=== PATIENT | male | born 1965 | race Caucasian/White ===

== ENCOUNTER 2021-08-26 12:30 | Observation (INO) ==
--- NOTE | 2021-08-26 12:54 | Emergency Department Note ---
History of Present Illness General Chief complaint: Neuro Symptoms/Deficit Stated complaint: NUMBNESS ON L SIDE Time Seen by Provider: 08/26/21 12:39 Source: patient History of Present Illness Provider complaint: Left-sided numbness Onset (ago): day(s) Location: head, face, upper extremity, lower extremity and left Pain Consistency: + intermittent Quality: + other (Tingling) Relieved By: + none Associated symptoms: no chest pain, no cough, no headaches, no nausea/vomiting, no shortness of breath or no weakness This is a 56-year-old male who presents with left-sided numbness. He states the symptoms started 2 days ago in the afternoon. He noticed that his entire left arm felt numb. He describes this as a tingling sensation. He states that it seemed to go away that evening and when he woke up yesterday he had no symptoms. He then started to drive to work and noticed that he had numbness again but it now involves his head, face, arm and leg on the left side. It has been persistent since it started yesterday. He called his regular physician who sent him here for evaluation. He does have a history of neck problems but states that he has no neck pain at this time. He denies any difficulty with his vi leonel, speech, mentation, gait, swallowing or strength. He has never had a stroke before. He denies any recent illness, fever, headache, cough or cold symptoms, chest pain, shortness of breath, abdominal pain, vomiting, diarrhea or urinary symptoms. Home Medications Medication Instructions Recorded Confirmed Type celecoxib 200 mg capsule (Celebrex) 200 mg PO DAILY #90 cap 01/11/21 08/26/21 Rx Allergies Allergy/AdvReac Type Severity Reaction Status Date / Time No Known Allergies Allergy Unknown Verified 08/26/21 15:10 Past Med/Surg History Medical History Broken humerus History of allergic urticaria Testicular pain Surgical History History of broken leg History of facial injury History of surgery on arm S/P LASIK surgery S/P wisdom tooth extraction Family History Father Myocardial infarction Dementia Hypertension Mother Hypertension Brother Diabetes Denies family history of Ovarian cancer Prostate cancer Breast cancer Colorectal cancer Social History Smoking Status: Never smoker Second Hand Exposure: No; Hx Alcohol Use: Yes Alcohol type: hard liquor Alcohol Intake Frequency: 4 or More x per/Week Hx Substance Use: No Preferred Language: Moz[place] Communication Ability: Effective Visual Impairment: No Limitations Hearing Ability: Normal 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 and A total of 10 systems reviewed and were otherwise negative Physical Exam Vital Signs Vital Signs - 24 hr 08/26/21 12:34 Temperature 36.6 C Temperature Source Temporal Artery Scan Pulse Rate 80 Respiratory Rate 16 Blood Pressure 167/95 H Blood Pressure Mean 119 Pulse Oximetry 99 Oxygen Delivery Method Room Air Sepsis Recent Fever Within 48 Hours No Sepsis New/Unexplained Change in Mental Status No Sepsis Action Taken by Nursing No Action Required Constitutional: Vital signs reviewed. Eyes: Pupils are equal round reactive to light. Conjunctiva are noninjected. ENT: Pharynx is clear without erythema or exudate. Mucous membranes are moist. Neck supple without meningeal signs. Respiratory: Clear to auscultation bilaterally. Breath sounds are equal bilaterally. Cardiovascular: Regular rate and rhythm. No rubs or gallops. GI: Soft, nondistended and nontender. Bowel sounds are present. Musculoskeletal: No peripheral edema. No lower extremity tenderness. Integumentary: No cyanosis. or jaundice. Neurologic: The patient is awake and alert. Cranial nerves II-XII are intact. Motor is 5 out of 5 all extremities. Sensation is intact to light touch all extremities. Normal speech. No pronator drift. No limb ataxia. Normal gait Psychiatric: Normal affect. Course Administered Medications Discontinued Medications Ioversol (Optiray 320 125ml) 120 ml IV ONCE ONE Stop: 08/26/21 14:32 Last Admin: 08/26/21 14:31 Dose: 120 ml Documented by: [id number] Medical Decision Making Differential Diagnosis TIA, CVA, intracranial mass, intracranial hemorrhage, metabolic derangement, demyelinating disease Medical Records Attestation: I reviewed the patient's medical records. I did perform a limited focused review of portions of the patient's old chart on the electronic medical record. The patient has had no recent pertinent visits to this hospital. He is followed by pain management for neck pain. Home Medications Current Medication List: was personally reviewed by me Laboratory Data Attestation: I reviewed the patient's lab results. Result diagrams: 08/26/21 13:02 08/26/21 13:02 Lab Results 08/26/21 08/26/21 08/26/21 Range/Units 13:02 13:02 13:02 WBC 6.66 (4.8-10.8) K/uL RBC 4.57 L (4.7-6.1) M/uL Hgb 15.4 (14.0-18.0) g/dL Hct 43.2 (42-52) % MCV 94.5 (80-100) fL MCH 33.7 (25-34) pg MCHC 35.6 (32-36) g/dL RDW Std Deviation 41.7 (36.4-46.3) fL RDW Coeff of Salma 12.1 (11.5-14.5) % Plt Count 172 (130-400) K/uL MPV 8.4 (7.4-10.4) fL Immature Gran % (Auto) 0.2 % Neut % (Auto) 70.1 % Lymph % (Auto) 21.8 % [place] % (Auto) 7.4 % Eos % (Auto) 0.3 % Baso % (Auto) 0.2 % Neut # (Auto) 4.68 (1.4-6.5) K/uL Lymph # (Auto) 1.45 (1.2-3.4) K/uL [place] # (Auto) 0.49 (0.11-0.59) K/uL Eos # (Auto) 0.02 (0-0.5) K/uL Baso # (Auto) 0.01 (0-0.2) K/uL Immature Gran # (Auto) 0.01 (0.00-0.02) K/uL PT 10.8 (9.0-12.0) Seconds INR 1.0 (0.9-1.1) APTT 28.9 (21.0-31.0) Seconds PTT Ratio 1.1 Sodium (136-145) mmol/L Potassium (3.5-5.1) mmol/L Chloride (98-107) mmol/L Carbon Dioxide (21-32) mmol/L Anion Gap (3-11) BUN (6-23) mg/dl Creatinine (0.6-1.4) mg/dl Est Cr Clr Drug Dosing ml/min Est GFR ( Amer) ml/min Est GFR (Non-Af Amer) ml/min BUN/Creatinine Ratio (10-20) Glucose (70-99(Fasting)) mg/dl Calcium (8.5-10.1) mg/dl Magnesium (1.7-2.4) mg/dl Total Bilirubin (0.2-1.0) mg/dl AST (13-39) U/L ALT (7-52) U/L Alkaline Phosphatase (34-104) U/L Troponin I (0-0.04) ng/ml Total Protein (6.0-8.3) gm/dl Albumin (3.4-5.0) gm/dl Globulin (2.5-4.0) gm/dl Albumin/Globulin Ratio (0.9-2) SARS-CoV-2, RNA, NAAT (NEGATIVE) Blood Type A Positive Antibody Screen NEGATIVE 08/26/21 08/26/21 Range/Units 13:02 13:11 WBC (4.8-10.8) K/uL RBC (4.7-6.1) M/uL Hgb (14.0-18.0) g/dL Hct (42-52) % MCV (80-100) fL MCH (25-34) pg MCHC (32-36) g/dL RDW Std Deviation (36.4-46.3) fL RDW Coeff of Salma (11.5-14.5) % Plt Count (130-400) K/uL MPV (7.4-10.4) fL Immature Gran % (Auto) % Neut % (Auto) % Lymph % (Auto) % [place] % (Auto) % Eos % (Auto) % Baso % (Auto) % Neut # (Auto) (1.4-6.5) K/uL Lymph # (Auto) (1.2-3.4) K/uL [place] # (Auto) (0.11-0.59) K/uL Eos # (Auto) (0-0.5) K/uL Baso # (Auto) (0-0.2) K/uL Immature Gran # (Auto) (0.00-0.02) K/uL PT (9.0-12.0) Seconds INR (0.9-1.1) APTT (21.0-31.0) Seconds PTT Ratio Sodium 137 (136-145) mmol/L Potassium 3.9 (3.5-5.1) mmol/L Chloride 101 (98-107) mmol/L Carbon Dioxide 26 (21-32) mmol/L Anion Gap 10 (3-11) BUN 14 (6-23) mg/dl Creatinine 0.88 (0.6-1.4) mg/dl Est Cr Clr Drug Dosing 112.0 ml/min Est GFR ( Amer) 111.3 ml/min Est GFR (Non-Af Amer) 96.0 ml/min BUN/Creatinine Ratio 15.9 (10-20) Glucose 143 H (70-99(Fasting)) mg/dl Calcium 10.0 (8.5-10.1) mg/dl Magnesium 2.1 (1.7-2.4) mg/dl Total Bilirubin 1.0 (0.2-1.0) mg/dl AST 23 (13-39) U/L ALT 28 (7-52) U/L Alkaline Phosphatase 42 (34-104) U/L Troponin I < 0.03 (0-0.04) ng/ml Total Protein 8.0 (6.0-8.3) gm/dl Albumin 5.0 (3.4-5.0) gm/dl Globulin 3.0 (2.5-4.0) gm/dl Albumin/Globulin Ratio 1.7 (0.9-2) SARS-CoV-2, RNA, NAAT NEGATIVE (NEGATIVE) Blood Type Antibody Screen Imaging Data Radiologist's Impression: Chest X-Ray 08/26/21 12:52 XR chest 1V portable CLINICAL HISTORY: Stroke Like Symptoms TECHNIQUE: Single frontal radiograph of the chest was obtained. Comparison: Comparison is made to chest 2 views 01/23/2012 FINDINGS: No lines and tubes are seen. The cardiomediastinal silhouette is normal. The lungs are clear. No evidence of pleural effusion or pneumothorax. IMPRESSION: No acute chest disease. ACT 112: Negative or not required by law. Electronically signed by: Remberto Carlisle M.D. 08/26/2021 1:[address] 08/26/21 12:52 CT angio neck with con, CT head/brain wo con, CT angio head w con CLINICAL HISTORY: Stroke Like Symptoms TECHNIQUE: Contiguous axial CT images of the head were acquired from the base of the skull to the vertex without intravenous contrast administration. CT angiography of the head and neck was performed following intravenous administrat ion of iodinated contrast. Coronal and sagittal MIPS were obtained from the axial data set and were submitted for review. Automated dose lowering techniques and/or adjustment according to patient size were utilized for this examination. All measurements were calculated based on NASCET criteria. Comparison: None available at the time of this dictation. FINDINGS: CT head: There is no acute intracranial hemorrhage or evidence of acute territorial infarction. No shift of the midline structures, mass effect, or extra-axial abnormalities are shown. Lungs and soft tissues are unremarkable. CTA Neck: A 3 vessel aortic arch is shown. There is no significant atherosc lerotic plaque in the aortic arch or the origins of the innominate, left common carotid, and left subclavian arteries. The common carotid, external carotid, cervical segments of the internal carotid arteries, and the cervical segments of the vertebral arteries are patent without hemodynamically significant stenosis. The left vertebral artery is dominant. CTA Head: The anterior and posterior cerebral circulations are patent. No hemodynamically significant stenosis, aneurysm, dissection, or arteriovenous malformation is shown. Atherosclerotic disease is noted. IMPRESSION: 1. No acute intracranial hemorrhage, evidence of acute territorial infarction, or other acute intracranial disease process. 2. No occlusion, hemodynamically significant stenosis, aneurysm, dissection, or arteriovenous malformation in the major intracranial arteries. 3. No occlusion, hemodynamically significant stenosis, or dissection in the major cervical arteries. Assessment of stenosis of the internal carotid arteries is based on NASCET criteria. ACT 112: Negative or not required by law. Electronically signed by: Remberto Carlisle M.D. 08/26/2021 2:51 PM Head CTA 08/26/21 12:52 CT angio neck with con, CT head/brain wo con, CT angio head w con CLINICAL HISTORY: Stroke Like Symptoms TECHNIQUE: Contiguous axial CT images of the head were acquired from the base of the skull to the vertex without intravenous contrast administration. CT angiography of the head and neck was performed following intravenous administration of iodinated contrast. Coronal and sagittal MIPS were obtained from the axial data set and were submitted for review. Automated dose lowering techniques and/or adjustment according to patient size were utilized for this examination. All measurements were calculated based on NASCET criteria. Comparison: None available at the time of this dictation. FINDINGS: CT head: There is no acute intracranial hemorrhage or evidence of acute territorial infarction. No shift of the midline structures, mass effect, or extra-axial abnormalities are shown. Lungs and soft tissues are unremarkable. CTA Neck: A 3 vessel aortic arch is shown. There is no significant atherosclerotic plaque in the aortic arch or the origins of the innominate, left common carotid, and left subclavian arteries. The common carotid, external carotid, cervical segments of the internal carotid arteries, and the cervical segments of the vertebral arteries are patent without hemodynamically significant stenosis. The left vertebral artery is dominant. CTA Head: The anterior and posterior cerebral circulations are patent. No hemodynamically significant stenosis, aneurysm, dissection, or arteriovenous m alformation is shown. Atherosclerotic disease is noted. IMPRESSION: 1. No acute intracranial hemorrhage, evidence of acute territorial infarction, or other acute intracranial disease process. 2. No occlusion, hemodynamically significant stenosis, aneurysm, dissection, or arteriovenous malformation in the major intracranial arteries. 3. No occlusion, hemodynamically significant stenosis, or dissection in the major cervical arteries. Assessment of stenosis of the internal carotid arteries is based on NASCET criteria. ACT 112: Negative or not required by law. Electronically signed by: Remberto Carlisle M.D. 08/26/2021 2:51 PM Neck CTA 08/26/21 12:52 CT angio neck with con, CT head/brain wo con, CT angio head w con CLINICAL HISTORY: Stroke Like Symptoms TECHNIQUE: Contiguous axial CT images of the head were acquired from the base of the skull to the vertex without intravenous contrast administration. CT angiography of the head and neck was performed following intravenous administration of iodinated contrast. Coronal and sagittal MIPS were obtained from the axial data set and were submitted for review. Automated dose lowering techniques and/or adjustment according to patient size were utilized for this examination. All measurements were calculated based on NASCET criteria. Comparison: None available at the time of this dictation. FINDINGS: CT head: There is no acute intracranial hemorrhage or evidence of acute territorial infarction. No shift of the midline structures, mass effect, or extra-axial abnormalities are shown. Lungs and soft tissues are unremarkable. CTA Neck: A 3 vessel aortic arch is shown. There is no significant atherosclerotic plaque in the aortic arch or the origins of the innominate, left common carotid, and left subclavian arteries. The common carotid, external carotid, cervical segments of the internal carotid arteries, and the cervical segments of the vertebral arteries are patent without hemodynamically significant stenosis. The left vertebral artery is dominant. CTA Head: The anterior and posterior cerebral circulations are patent. No hemodynamically significant stenosis, aneurysm, dissection, or arteriovenous malformation is shown. Atherosclerotic disease is noted. IMPRESSION: 1. No acute intracranial hemorrhage, evidence of acute territorial infarction, or other acute intracranial disease process. 2. No occlusion, hemodynamically significant stenosis, aneurysm, dissection, or arteriovenous malformation in the major intracranial arteries. 3. No occlusion, hemodynamically significant stenosis, or dissection in the major cervical arteries. Assessment of stenosis of the internal carotid arteries is based on NASCET criteria. ACT 112: Negative or not required by law. Electronically signed by: Remberto Carlisle M.D. 08/26/2021 2:51 PM ECG Data Attestation: I personally reviewed and interpreted this ECG as follows: Indication: + other (Stroke symptoms) Rate (beats per minute): 83 Rhythm: + normal sinus ECG [place]: + Normal ECG ST segments: + Nonspecific ST abnormalities ECG Findings: no PVCs Comparison ECG Date: no prior available MDM Narrative I did evaluate the patient as noted above. The patient is presenting with numbness to the left side of his body. Initially started on his arm 2 days ago but then progressed to the rest of his body starting yesterday morning. It is persistent here. On examination he has no neurologic deficit. He is not a TPA candidate as he has had symptoms for 2 days now. IV access was established. I did place an order for continuous cardiac monitoring. The monitor showed normal sinus rhythm at a rate of 82 bpm. I did order and personally review the patient's 12-lead EKG as described above. He has nonspecific findings with no signs of acute ischemia. I did order and personally reviewed the images of the patient's chest x-ray as described above. Chest x-ray is unremarkable. I did order a urine analysis. I did order and review the patient's blood work as noted in the electronic medical record. CBC is unremarkable without leukocytosis or anemia. I did order a CT of the head and CT angiogram of the head and neck. I did review the images myself as well as the radiology report as described above. There is no evidence of acute stroke or intracranial abnormality on CT of the head. Angiogram does not show any evidence of dissection, aneurysm or significant stenosis. I did reassess the patient. He continues to have numbness to the left arm and face but less so in the leg. I did discuss the test results with him and his family. I did recommend hospitalization for further evaluation and MRI. I did discuss the case with the hospitalist and case managers. Impression & Plan Numbness on left side Discharge Plan Visit Data Chief Complaint: Neuro Symptoms/Deficit Stated Complaint: NUMBNESS ON L SIDE ED Provider: Abran Carson Discharge Problem: Numbness on left side Patient Disposition: Being Evaluated by Hospitalist Forms Stand Alone Forms: My [facility] [place] [facility]ustrum Prescriptions Prescriptions: No Action celecoxib [Celebrex] 200 mg capsule 200 mg PO DAILY Qty: 90 RF: 3 Referrals Referrals: Narinder Kruger DO [Primary Care Provider] -
[2021-08-26 13:15] LABS: Basophils # (auto) 0.01 K/uL (0-0.2); Basophils % (auto) 0.2 %; Eosinophils # (auto) 0.02 K/uL (0-0.5); Eosinophils % (auto) 0.3 %; Hematocrit (blood only) 43.2 % (42-52); Hemoglobin 15.4 g/dL (14.0-18.0); Immature Granulocytes # (auto) 0.01 K/uL (0.00-0.02); Immature Granulocytes % (auto) 0.2 %; Lymphocytes # (auto) 1.45 K/uL (1.2-3.4); Lymphocytes % (auto) 21.8 %; Mean Corpuscular Hemoglobin 33.7 pg (25-34); Mean Corpuscular Hgb Conc 35.6 g/dL (32-36); Mean Corpuscular Volume 94.5 fL (80-100); Mean Platelet Volume 8.4 fL (7.4-10.4); Monocytes # (auto) 0.49 K/uL (0.11-0.59); Monocytes % (auto) 7.4 %; Neutrophils # (auto) 4.68 K/uL (1.4-6.5); Neutrophils % (auto) 70.1 %; Platelet Count 172 K/uL (130-400); RDW Coefficient of Variation 12.1 % (11.5-14.5); RDW Standard Deviation 41.7 fL (36.4-46.3); Red Blood Count 4.57 M/uL (4.7-6.1); White Blood Count 6.66 K/uL (4.8-10.8)
--- NOTE | 2021-08-26 13:22 | XRay Report ---
XR chest 1V portable CLINICAL HISTORY: Stroke Like Symptoms TECHNIQUE: Single frontal radiograph of the chest was obtained. Comparison: Comparison is made to chest 2 views 01/23/2012 FINDINGS: No lines and tubes are seen. The cardiomediastinal silhouette is normal. The lungs are clear. No evid ence of pleural effusion or pneumothorax. IMPRESSION: No acute chest disease. ACT 112: Negative or not required by law. Electronically signed by: Remberto Carlisle M.D. 08/26/2021 1:21 PM
[2021-08-26 13:31] LABS: Partial Thromboplastin Ratio 1.1; Partial Thromboplastin Time 28.9 Seconds (21.0-31.0); Prothrombin Time 10.8 Seconds (9.0-12.0)
[2021-08-26 13:47] LABS: Troponin I < 0.03 ng/ml (0-0.04)
[2021-08-26 14:02] LABS: Alanine Aminotransferase 28 U/L (7-52); Albumin Globulin Ratio 1.7 (0.9-2); Alkaline Phosphatase 42 U/L (34-104); Anion Gap 10 (3-11); Aspartate Aminotransferase 23 U/L (13-39); BUN Creatinine Ratio 15.9 (10-20); Blood Urea Nitrogen 14 mg/dl (6-23); Carbon Dioxide 26 mmol/L (21-32); Chloride 101 mmol/L (98-107); Est GFR (African American) 111.3 ml/min; Glucose 143 mg/dl (70-99(Fasting)); Magnesium 2.1 mg/dl (1.7-2.4); Potassium 3.9 mmol/L (3.5-5.1); Sodium 137 mmol/L (136-145)
[2021-08-26] MEDS ORDERED: OPTIRAY 320 125ml IV ONE (14:31)
--- NOTE | 2021-08-26 14:53 | CT Scan Report ---
CT angio neck with con, CT head/brain wo con, CT angio head w con CLINICAL HISTORY: Stroke Like Symptoms TECHNIQUE: Contiguous axial CT images of the head were acquired from the base of the skull to the connor cristopher without intravenous contrast administration. CT angiography of the head and neck was performed f ollowing intravenous administration of iodinated contrast. Coronal and sagittal MIPS were obtained fr om the axial data set and were submitted for review. Automated dose lowering techniques and/or adjus tment according to patient size were utilized for this examination. All measurements were calculated based on NASCET criteria. Comparison: None available at the time of this dictation. FINDINGS: CT head: There is no acute intracranial hemorrhage or evidence of acute territorial infarction. No sh ift of the midline structures, mass effect, or extra-axial abnormalities are shown. Lungs and soft tissues are unremarkable. CTA Neck: A 3 vessel aortic arch is shown. There is no significant atherosclerotic plaque in the aor tic arch or the origins of the innominate, left common carotid, and left subclavian arteries. The c ommon carotid, external carotid, cervical segments of the internal carotid arteries, and the cervical segments of the vertebral arteries are patent without hemodynamically significant stenosis. The left vertebral artery is dominant. CTA Head: The anterior and posterior cerebral circulations are patent. No hemodynamically significan t stenosis, aneurysm, dissection, or arteriovenous malformation is shown. Atherosclerotic disease is noted. IMPRESSION: 1. No acute intracranial hemorrhage, evidence of acute territorial infarction, or other acute intrac ranial disease process. 2. No occlusion, hemodynamically significant stenosis, aneurysm, dissection, or arteriovenous malfor mation in the major intracranial arteries. 3. No occlusion, hemodynamically significant stenosis, or dissection in the major cervical arteries. Assessment of stenosis of the internal carotid arteries is based on NASCET criteria. ACT 112: Negative or not required by law. Electronically signed by: Remberto Carlisle M.D. 08/26/2021 2:51 PM
--- NOTE | 2021-08-26 15:50 | History & Physical Report ---
Date of Service August 26, 2021 Assessment & Plan (1) Paresthesia: Plan: (Suspect spinal disease, given the rather patchy nature on exam fitting more with nerve root distribution then homunculus, that said with his age and lipids it is quite reasonable to rule out stroke. We will do this stepwisegiven that stroke is lower on the differential than spinal disease, and his symptoms have lasted for probably about 30 hours at this point, MRI brain should be fairly de finitive at ruling out stroke. We will proceed with MRI brainand then if it does show stroke, work-up further for cerebrovascular disease from there. If it is negative, discussed with patient that we can then address spinal disease, and whether or not to proceed with MRI C-spine and L-spine while he is still in the hospital, or as an outpatient; likewise can start him on some corticosteroids to help with the paresthesias. If MRI is negative) (2) Hyperlipidemia: Plan: Markedly elevated non-HDL last yearcertainly this warrants follow-upagain the relevance will really hinge on whether or not he had a stroke. If he did, lipid panel and an A1c tomorrow, if MRI is negative for stroke, then as an outpatient (3) Elevated blood pressure reading: Plan: Strongly suspect this is reactive to the stress of the momenthe notes normally he is about 120/70 in the officeoutpatient follow-up for this unless it persists/unless he had a stroke (4) DVT prophylaxis: Plan: Overall fairly low risk, pharmacologic/mechanical prophylaxis does not appear indicated at this time (5) Discharge planning issues: Plan: Observe on telemetryotherwise as above History of Present Illness Chief Complaint: Left-sided paresthesias Primary Care Provider: Narinder Kruger DO Patient is a very pleasant 56-year-old male who notes that he had left-sided paresthesias starting yesterday. Maybe had a little bit on his arm the day before, but then he had left-sided face arm and leg paresthesias pretty much all day yesterday unremitting. No motor weakness no facial droop no slurred speech. No foot drop no falling. Notes that he has had a long history of spinal disease, and figured this was probably related to that, and try to give things time to go awayhe does some regular stretching, thought maybe he needs more formal PT. That said, whenever the numbness did not go away today he decided that he should probably be seenand was heavily urged by his sons to come to the ER. Here he had a CT head and CT angio that were negative, and we were asked to see for further evaluation. He still currently has left hand and foot paresthesias, may be the whole left arm, nothing on his face. Allergies Allergy/AdvReac Type Severity Reaction Status Date / Time No Known Allergies Allergy Unknown Verified 08/26/21 15:10 Home Medications Medication Instructions Recorded Confirmed Type celecoxib 200 mg capsule (Celebrex) 200 mg PO DAILY #90 cap 01/11/21 08/26/21 Rx Past Med/Surg History Medical History Broken humerus History of allergic urticaria Testicular pain Surgical History History of broken leg History of facial injury History of surgery on arm S/P LASIK surgery S/P wisdom tooth extraction Family History Father Myocardial infarction Dementia Hypertension Mother Hypertension Brother Diabetes Denies family history of Ovarian cancer Prostate cancer Breast cancer Colorectal cancer Social History Smoking Status: Never smoker Second Hand Exposure: No; Hx Alcohol Use: Yes Alcohol type: hard liquor Alcohol Intake Frequency: 4 or More x per/Week Hx Substance Use: No Preferred Language: Slovak Communication Ability: Effective Visual Impairment: No Limitations Hearing Ability: Normal 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 marital status: Current Living Situation: Spouse current occupational status: employed 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 HEENT normocephalic atraumatic mucous membranes moist. Cardio is regular without no rubs murmurs or gallops. Lungs clear to auscultation bilaterally no rales rhonchi or wheezes good effort. Abdomen soft nondistended nontender no masses organomegaly. Extremities are without cyanosis clubbing or edema no calf tenderness. Neuro shows cranial nerves II through XII to be grossly intactmost notably no facial droop and no facial numbness to confrontational light touch. Sensory bilateral is overall intacthe does have a few areas where he has more paresthesias to light touch on his left handpalmar in the region of his fourth phalanx/palm, and a little bit on the lateral part of his shoulder/deltoid regionless so in the middle of his arm. As it relates to his leg, he has some subjective paresthesias to light touch left sole of foot as well as medial and lateral, but not really anything more proximal than that. Motor is 5 out of 5 without any focal weakness globally. Musculoskeletal shows no gross lesions or deformities, normal spinal alignment, although he does have a little bit of a mild increase in paresthesias with a C-spine foraminal compression. Skin shows no rashes no pallor or icterus. Mental status shows him to be pleasantly anxious but otherwise good recent and remote recall normal mood and affect good judgment and insight Results & Data Results & Data ([facility]) Vital Signs (Past 12 Hours) Vital Signs Temp Pulse Pulse Resp BP BP Pulse Ox 08/26/21 14:52 78 18 154/104 H 98 08/26/21 12:34 97.9 F 80 16 167/95 H 99 Code Status & VTE Plan VTE Prophylaxis Plan VTE Prophylaxis will be ordered: No PG Care Time/CCT Total # of Minutes Spent Total Time Spent with Patient: Total time spent is greater than 50% in coordination of care (as documented) at patient's floor/unit and/or counseling patient: Coding Level of Care Code INT OBSERVATION CARE 70M LVL 3 Diagnoses Paresthesia R20.2 Hyperlipidemia E78.5 Elevated blood pressure reading R03.0 DVT prophylaxis Z29.9 Discharge planning issues Z02.9
[2021-08-26] MEDS ORDERED: LORazepam 1 MG TAB PO PRN (16:16)
--- NOTE | 2021-08-26 17:03 | Electrocardiogram Report ---
Test Reason : Blood Pressure : / mmHG Vent. Rate : 083 BPM Atrial Rate : 083 BPM P-R Int : 152 ms QRS Dur : 076 ms QT Int : 358 ms P-R-T Axes : 058 027 021 degrees QTc Int : 420 ms Normal sinus rhythm When compared with ECG of 23-JAN-2012 10:59, Nonspecific T wave abnormality now evident in Inferior leads Confirmed by Erick Vasquez ([id number]) on 08/26/2021 5:02:57 PM Referred By: REFERRED SELF Confirmed By:Tru Vasquez
[2021-08-26] MEDS ORDERED: MAGNESIUM HYDROXIDE SUSP 30 ML UDC PO PRN (18:43)
[2021-08-26] MEDS ORDERED: ONDANSETRON INJ 2 MG/ML 2 ML VIAL IV PRN (18:43)
[2021-08-26] MEDS ORDERED: ALUMINUM/MAGNESIUM SUSP 30 ML UDC PO PRN (18:43)
[2021-08-26] MEDS ORDERED: POLYETHYLENE (MIRALAX) 17 GM PACK PO PRN (18:43)
[2021-08-26] MEDS ORDERED: ACETAMINOPHEN 325 MG TAB PO PRN (18:43)
--- NOTE | 2021-08-26 18:55 | Magnetic Resonance Report ---
MR brain wo con CLINICAL HISTORY: Left-sided numbness for 2 days. Previous fall a week and half ago.. COMPARISON STUDY: CT brain and CTA brain from 08/26/2021 TECHNIQUE: Multiplanar multisequence images of the Brain were performed without IV contrast. FINDINGS: Extra-axial space: There is no evidence for a subdural hematoma, There are no extra-axial fluid abi ections. Ventricles and cisterns: The ventricles are normal in size and configuration. There is no evidence f or midline shift or mass effect. Parenchyma: There is a very small focus of increased signal seen within the basal ganglia on the righ t on diffusion weighted imaging. This has the appearance of a very small acute to subacute infarct no ADC mapping abnormality is identified. There is normal wesley-white differentiation. The sulci and gy ri appear normal without effacement. The midline structures are unremarkable. The posterior fossa str uctures appear normal. There is no evidence for mass lesion. Osseous structures: The paranasal sinuses are well aerated. The mastoid air cells are well aerated. Soft tissues: No focal soft tissue abnormalities are identified. IMPRESSION: 1. There is small focus of abnormal signal within the basal ganglia on the right on diffusion weighte d imaging characteristic of an acute to subacute infarct related to small vessel disease. 2. No other acute abnormalities identified. ACT 112: Negative or not required by law. Electronically signed by: Jeramy Kam M.D. 08/26/2021 6:53 PM
[2021-08-26] MEDS ORDERED: ASPIRIN 81 MG ECTAB PO ONE (20:45)
[2021-08-27 07:34] LABS: Estimated Average Glucose 97 mg/dl
[2021-08-27 08:01] LABS: Chol HDL Ratio 3.6 (0-5)
[2021-08-27] MEDS ORDERED: ASPIRIN 81 MG ECTAB PO SCH (09:00)
--- NOTE | 2021-08-27 11:16 | Discharge Summary ---
Date of Service August 27, 2021 Admission HPI Per Admitting Provider Patient is a very pleasant 56-year-old male who notes that he had left-sided paresthesias starting yesterday. Maybe had a little bit on his arm the day before, but then he had left-sided face arm and leg paresthesias pretty much all day yesterday unremitting. No motor weakness no facial droop no slurred speech. No foot drop no falling. Notes that he has had a long history of spinal disease, and figured this was probably related to that, and try to give things time to go awayhe does some regular stretching, thought maybe he needs more formal PT. That said, whenever the numbness did not go away today he decided that he should probably be seenand was heavily urged by his sons to come to the ER. Here he had a CT head and CT angio that were negative, and we were asked to see for further evaluation. He still currently has left hand and foot paresthesias, may be the whole left arm, nothing on his face. Principal Diagnosis 1. Acute to subacute CVA 2. Left-sided paresthesiassecondary to #1 3. Hyperlipidemia Discharge Exam General: Resting comfortably in his hospital bed. NAD. HEENT: Head is AT/NC. Buccal mucosa is moist and pink Neck: No JVD. Negative hepatojugular reflex Cardiac: RRR with 1/6 BRIONNA Lungs: CTA without W/R/R Abdomen: Normoactive X4. Soft and nontender in all quadrants. Extremities: No peripheral clubbing cyanosis or edema Neuro: A&O X4. Cranial nerves II through XII are grossly intact. No facial droop. Subtle tongue deviation to the right with deviation of the uvula to the left. Shoulder shrug, [id number] all intact. Downward Babinski bilaterally. Reflexes intact and symmetrical. 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 Skin: No obvious skin lesions or rashes Psych: Appropriate affect. Pleasant and cooperative Discharge Data Allergies Allergy/AdvReac Type Severity Reaction Status Date / Time No Known Allergies Allergy Unknown Verified 08/26/21 15:10 Consultations 08/26/21 15:15 ED Decision to Admit Stat Ordered Studies 08/26/21 12:52 CT angio head w con Stat CT angio neck with con Stat CT head/brain wo con Stat IMPRESSION: 1. No acute intracranial hemorrhage, evidence of acute territorial infarction, or other acute intracranial disease process. 2. No occlusion, hemodynamically significant stenosis, aneurysm, dissection, or arteriovenous malformation in the major intracranial arteries. 3. No occlusion, hemodynamically significant stenosis, or dissection in the major cervical arteries. 08/26/21 15:43 MR brain wo con Stat IMPRESSION: 1. There is small focus of abnormal signal within the basal ganglia on the right on diffusion weighted imaging characteristic of an acute to subacute infarct related to small vessel disease. 2. No other acute abnormalities identified. Hospital Course (1) CVA (cerebral vascular accident): 56-year-old white male with no significant past medical history presented to the emergency department complaining of left-sided paresthesias ongoing X 48 hours. Initially started in the left arm and face. Has known spinal stenosis and chalked this up to nerve impingement. When symptoms were persistent to the point where he could not move his left fifth digit and now with paresthesias involving the left leg, he decided to seek medical attention. -CT of the head showed no acute intracranial process -CTA of the head and neck showed no occlusion or hemodynamic significant stenosis. No dissection in the major arteries. -MRI done revealing small focus of abnormal signal within the basal ganglia on the right characteristic of acute to subacute infarct with small vessel disease -EKG shows no arrhythmia. Nonspecific but nonacute ST changes noted -receiving barn custodian shows no evidence of arrhythmia -Patient hospitalized and started on aspirin in addition to statin therapy -Lipid panel performed for risk stratification. Total cholesterol: 228, triglyceride: 110, LDL: 143, HDL: 63--> continue Lipitor for added risk stratification and to help with the cerebral penumbra -Aspirin 81 mg added and should be continued -Patient does not use tobacco or tobacco related products -Echocardiogram obtainedresults pending -Blood sugars and blood pressure have been within normal limits. A1c obtained for stratification and is normal at 5.0% -When seen on daily rounds 08/27, patient reports mild residual paresthesias in the left upper extremity in the face but significantly improved compared to presentation. He denies any dysarthria/dysphagia. No trouble swallowing food. Noproblems forming his words. His speech has been cleared. At this point time, I believe he is medically and hemodynamically stable for discharge home with continued statin therapy and aspirin. Lengthy discussion with patient regarding the importance of dietary modifications and a low-cholesterol diet. He should follow-up with his PCP within 7 to 10 days and return to the ED for any new or worsening symptoms. I have outlined signs and symptoms of a stroke and encouraged him to seek medical attention immediately. (2) Hyperlipidemia: -Lipitor added. See above (3) Numbness on left side: -Secondary to #1see above Discharged home. Patient seen and discussed with Dr. Montanez who agrees with plan to discharge to home today Total Time Total Time Spent Total Time Spent (In Minutes): 35 minutes including time spent with patient and education Discharge Plan Discharge Items Patient Disposition: Home - Self-Care Reason For Visit: L SIDED PARESTHESIAE Discharge Diagnosis: 1. Acute/Subacute Cerebral Vascular Accident (stroke) 2. Left sided Paresthesias ("numbness/tingling") 3. Hyperlipidemia- ("elevated cholesterol") Activity: Resume your previous activity Activity Comment: as tolerated Non-emergency contact: Primary Care Provider Call non-emergency contact if: you have any medication questions Follow-up/Referrals: Narinder Kruger, [Primary Care Provider] - Diet: Heart Healthy Addtl Attending Provider Instructions: You presented to the hospital with concerns of left sided paresthesias (numbness and tingling). The CT of the head and blood vessels showed no abnormality The MRI of you brain showed a very small area concerning for acute (or subacute-- meaning happening within 72 hours prior to presentation) stroke. As we discussed, there is nothing to do regarding the stroke at already occurred. You body may (or may not) make new pathways (or collateral flow) for blood supply to get to this area of the brain. The residual numbness/tingling may (or may not) be permanent. Our focus at this point is preventing any subsequent events (which you are at risk for). We do that by: -making sure that your blood pressure and blood sugars are controlled (which they are) -controlled your cholesterol --your good cholesterol (HDL) is nice and high at 63 (the higher this is, the better) --Your bad cholesterol (LDL) isn't terrible- at 143, ideally we would want to see <100. --Your Triglycerides are acceptable at 110 (goal is <150) --we have started you on Lipitor to help with improvements in your cholesterol and to help prevent spreading of the stroke in the brain (from inflammation of surrounding tissue) --in addition to Lipitor, recommend dietary changes (as discussed): replace red meat in your diet with fish/chicken. Avoid fried/fatty foods, a little red wine at night -addition of Aspirin (to help thin the blood to get back tiny blockages in the small vessels that perfuses the brain) -it is important to avoid all tobacco products (which you do not use) -unfortunately, with all of these changes, you are still at risk given your family history/genetics and your gender. it is important to recognize signs/symptoms of a stroke and reports to the ED JOSÉ LUSI! TIME IS IF THE ESSENCE Remember FAST: F: face (asymmetry, slurred speech, facial droop, numbness/tingling) A: arm (weakness, numbness/tingling, trouble with tank builder or dropping things) S: Speech (slurred or garbled speech, unable to speak or not making sense) T: TIME!!! call 911 immediately. There are other issues that could be going on but you do not want to miss a stroke! Pending Studies at Discharge: Yes Studies:: Echocardiogram- done and pending. If there are any abnormalities, I will call you with these Stand-Alone Forms: My [facility] Medications and DC Order Prescriptions: New aspirin 81 mg Tablet,Delayed Release (Dr/Ec) 81 mg PO QAM Qty: 30 RF: 0 atorvastatin [Lipitor] 40 mg tablet 40 mg PO HS Qty: 30 RF: 0 Continued celecoxib [Celebrex] 200 mg capsule 200 mg PO DAILY Qty: 90 RF: 3 Discharge Orders: Discharge Order (Routine); Ordered 08/27/21 Ordered By: Lottie Wood/Other Patient Handouts: Low-Fat Cooking Tips, Discharge Instructions for Stroke, ED Low-Cholesterol Diet Admission Data Admit Date/Time: 08/26/21 15:43 Attending Provider: Abran Montanez Admit Provider: Efren Soriano Primary Care Provider: Narinder Kruger Other Providers: Efren Soriano Coding Level of Care Code 83292 OBS Care - Discharge Diagnoses CVA (cerebral vascular accident) I63.9 Hyperlipidemia E78.5 Numbness on left side R20.0
--- NOTE | 2021-08-27 12:39 | XCELERA ---
[id number]
== END 2021-08-27 12:30 | disposition home or self-care (01) ==
LOC: 2W 12:30 → ED 12:30 → SUATTDRO 15:43 → 2W 18:02 → 2N 08-27 03:45
DX: Z79.899 Other long term (current) drug therapy; R20.0 Anesthesia of skin; E78.5 Hyperlipidemia, unspecified; I63.9 Cerebral infarction, unspecified; R03.0 Elevated blood-pressure reading, without diagnosis of hypertension; Z20.822 Contact with and (suspected) exposure to COVID-19